=== PATIENT | female | born 1990 | race Hispanic/Latino ===

== ENCOUNTER 2019-07-22 13:56 | Emergency (ER) | payer OTHER ==
[2019-07-22] MEDS ORDERED: LIDOCAINE 1% W/EPI 1:100,000 MDV 20 ML VIAL ONE (16:55)
[2019-07-22] MEDS ORDERED: levETIRAcetam 500 MG TAB ONE (16:55)
--- NOTE | 2019-07-22 17:45 | ER ---
Nurse's Notes [facility] Name: Akua Love Age: 29 yrs Sex: Female : 1990 Arrival Date: 07/22/2019 Time: 13:58 Bed 20 Private MD: Diagnosis: Pilonidal cyst with abscess; related conditions, unspecified, third trimester Presentation: 07/22 14:32 Presenting complaint: Patient states: went to Dr. Ulloa and was told she had a iw pilonidal cyst, was referred to a surgeon but she didn't have money up front, abscess has been there for 2 days , pt is 26 weeks . Transition of care: patient was not received from another setting of care. Onset of symptoms was July 20, 2019. Risk Assessment: Do you want to hurt yourself or someone else? Patient reports no desire to harm self or others. Initial Sepsis Screen: Does the patient meet any 2 criteria? No. Patient's initial sepsis screen is negative. Does the patient have a suspected source of infection? No. Patient's initial sepsis screen is negative. Care prior to arrival: None. 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 - Coronavirus screen:: The patient has NOT traveled to [place], [place], or [place] in the past 14 days. Proceed with normal triage process as indicated. - Social history:: Smoking status: Smoking status: Patient denies any tobacco usage or history of. - Family history:: not pertinent. - Ebola Screening: : Patient negative for fever greater than or equal to 101.5 degrees Fahrenheit, and additional compatible Ebola Virus Disease symptoms Patient denies exposure to infectious person Patient denies travel to an Ebola-affected area in the 21 days before illness onset No symptoms or risks identified at this time. Screenin:00 Abuse screen: Denies threats or abuse. Denies injuries from another. Nutritional sg screening: No deficits noted. Tuberculosis screening: No symptoms or risk factors identified. Never had TB. Fall Risk None identified. Assessment: 16:01 General: Appears in no apparent distress. well groomed, well developed, well nourished, sg Behavior is calm, cooperative, appropriate for age. Pain: Complains of pain in coccyx Quality of pain is described as aching, throbbing. Neuro: Level of Consciousness is awake, alert, obeys commands, Oriented to person, place, time, situation, Moves all extremities. Gait is steady, Facial symmetry appears normal. Cardiovascular: Capillary refill is brisk in bilateral fingers Patient's skin is warm and dry. Chest pain is denied. Respiratory: Airway is patent Respiratory effort is even, unlabored, Respiratory pattern is regular, symmetrical. GI: No signs and/or symptoms were reported involving the gastrointestinal system. : No signs and/or symptoms were reported regarding the genitourinary system. EENT: No signs and/or symptoms were reported regarding the EENT system. Derm: Skin is pink, warm \T\ dry. Derm: Abscess located on coccyx is quarter sized, is hot to touch, is red, is raised. Musculoskeletal: Circulation, motion, and sensation intact. Range of motion: intact in all extremities. Vital Signs: 14:34 BP 117 / 78; Pulse 94; Resp 16; Temp 98.0(O); Pulse Ox 100% on R/A; Weight 88.45 kg; iw Height 5 ft. 3 in. (160.02 cm); Pain 9/10; 14:34 Body Mass Index 34.54 (88.45 kg, 160.02 cm) iw ED Course: 13:58 Patient arrived in ED. mr 14:34 Triage completed. iw 14:34 Arm band placed on. iw 15:01 Bed in low position. Call light in reach. tw2 15:02 Arturo Ashton, RN is Primary Nurse. sg 15:06 Ray Rogel MD is Attending Physician. adilene 17:44 Mehul Jaramillo MD is Referral Physician. adilene Administered Medications: 17:30 Drug: KeFLEX 500 mg Route: PO; sg 17:56 Drug: Lidocaine-Epinephrine -1%: (1:100,000) 10 ml {Note: medication administered by glory Rogel.} Volume: 20 ml; Route: Infiltration; Outcome: 17:44 Discharge ordered by . adilene 18:16 Patient left the ED. sg Signatures: Arturo Ashton RN RN Ray Montaño MD MD [facility] m[facility] Maureen Gillette RN RN iw Wise, Tara, RN RN tw2 Corrections: (The following items were deleted from the chart) 14:36 14:32 Presenting complaint: Patient states: went to Dr. Ulloa and was told she had a iw pilonidal cyst, was referred to a surgeon but she didn't have money up front, abscess has been there for 2 days iw
--- NOTE | 2019-07-22 17:45 | EDPHYS ---
Physician Documentation [facility] Name: Akua Love Age: 29 yrs Sex: Female : 1990 Arrival Date: 07/22/2019 Time: 13:58 Bed 20 Private MD: ED Physician Ray Rogel HPI: 07/22 16:31 This 29 yrs old Female presents to ER via Ambulatory with complaints of adilene Abscess. 16:31 the patient presents with a swollen area of the buttocks. Description: confluent, adilene erythematous, fluctuant, raised. Onset: The symptoms/episode began/occurred 3 day(s) ago. Associated signs and symptoms: The patient has no apparent associated signs or symptoms. Severity of symptoms: At their worst the symptoms were moderate, in the emergency department the symptoms are unchanged. The patient has not experienced similar symptoms in the past. 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 - Coronavirus screen:: The patient has NOT traveled to [place], [place], or [place] in the past 14 days. Proceed with normal triage process as indicated. - Social history:: Smoking status: Smoking status: Patient denies any tobacco usage or history of. - Family history:: not pertinent. - Ebola Screening: : Patient negative for fever greater than or equal to 101.5 degrees Fahrenheit, and additional compatible Ebola Virus Disease symptoms Patient denies exposure to infectious person Patient denies travel to an Ebola-affected area in the 21 days before illness onset No symptoms or risks identified at this time. ROS: 16:31 Constitutional: Negative for fever, chills, and weight loss, Eyes: Negative for injury, adilene pain, redness, and discharge, ENT: Negative for injury, pain, and discharge, Neck: Negative for injury, pain, and swelling, Cardiovascular: Negative for chest pain, palpitations, and edema, Respiratory: Negative for shortness of breath, cough, wheezing, and pleuritic chest pain, Abdomen/GI: Negative for abdominal pain, nausea, vomiting, diarrhea, and constipation, Back: Negative for injury and pain, : Negative for injury, bleeding, discharge, and swelling, MS/Extremity: Negative for injury and deformity, Neuro: Negative for headache, weakness, numbness, tingling, and seizure, Psych: Negative for depression, anxiety, suicide ideation, homicidal ideation, and hallucinations, Allergy/Immunology: Negative for hives, rash, and allergies, Endocrine: Negative for neck swelling, polydipsia, polyuria, polyphagia, and marked weight changes, Hematologic/Lymphatic: Negative for swollen nodes, abnormal bleeding, and unusual bruising. 16:31 Skin: Positive for erythema, of the buttocks. Exam: 16:31 Constitutional: This is a well developed, well nourished patient who is awake, alert, adilene and in no acute distress. Head/Face: Normocephalic, atraumatic. Eyes: Pupils equal round and reactive to light, extra-ocular motions intact. Lids and lashes normal. Conjunctiva and sclera are non-icteric and not injected. Cornea within normal limits. Periorbital areas with no swelling, redness, or edema. ENT: Nares patent. No nasal discharge, no septal abnormalities noted. Tympanic membranes are normal and external auditory canals are clear. Oropharynx with no redness, swelling, or masses, exudates, or evidence of obstruction, uvula midline. Mucous membranes moist. Neck: Trachea midline, no thyromegaly or masses palpated, and no cervical lymphadenopathy. Supple, full range of motion without nuchal rigidity, or vertebral point tenderness. No Meningismus. Chest/axilla: Normal chest wall appearance and motion. Nontender with no deformity. No lesions are appreciated. Cardiovascular: Regular rate and rhythm with a normal S1 and S2. No gallops, murmurs, or rubs. Normal PMI, no JVD. No pulse deficits. Respiratory: Lungs have equal breath sounds bilaterally, clear to auscultation and percussion. No rales, rhonchi or wheezes noted. No increased work of breathing, no retractions or nasal flaring. Abdomen/GI: Soft, non-tender, with normal bowel sounds. No distension or tympany. No guarding or rebound. No evidence of tenderness throughout. Back: No spinal tenderness. No costovertebral tenderness. Full range of motion. Female : Normal external genitalia. MS/ Extremity: Pulses equal, no cyanosis. Neurovascular intact. Full, normal range of motion. Neuro: Awake and alert, GCS 15, oriented to person, place, time, and situation. Cranial nerves II-XII grossly intact. Motor strength 5/5 in all extremities. Sensory grossly intact. Cerebellar exam normal. Normal gait. Psych: Awake, alert, with orientation to person, place and time. Behavior, mood, and affect are within normal limits. 16:31 Skin: abscess, that is small, cellulitis, that is minimal, induration, that is moderate is noted. Vital Signs: 14:34 BP 117 / 78; Pulse 94; Resp 16; Temp 98.0(O); Pulse Ox 100% on R/A; Weight 88.45 kg; iw Height 5 ft. 3 in. (160.02 cm); Pain 9/10; 14:34 Body Mass Index 34.54 (88.45 kg, 160.02 cm) Procedures: 17:44 I \T\ D: Incision and drainage was performed for an abscess of the right pilonidal cyst adilene Prepped with Betadine, Anesthetized with 10 ml's 1% Lidocaine w/ Epi. Incised with #11 blade. Drained large amount purulent fluid. serosanguinous fluid. bloody fluid. Packed with iodoform gauze, Dressing: non-Adherent dressing, the patient tolerated the procedure well. MDM: 15:06 Patient medically screened. [facility] 16:33 Data reviewed: vital signs, nurses notes, lab test result(s). [facility] 07/22 17:56 Order name: Wound Culture [facility] 07/22 16:31 Order name: FHT's; Complete Time: 17:56 [facility] 07/22 16:31 Order name: Blood Glucose Level; Complete Time: 17:56 [facility] 07/22 16:31 Order name: Dressing - Wound; Complete Time: 16:44 [facility] 07/22 16:31 Order name: Gloves, Sterile; Complete Time: 16:44 [facility] 07/22 16:31 Order name: Setup Suture Tray; Complete Time: 16:44 [facility] Administered Medications: 17:30 Drug: KeFLEX 500 mg Route: PO; 17:56 Drug: Lidocaine-Epinephrine -1%: (1:100,000) 10 ml {Note: medication administered by glory Rogel.} Volume: 20 ml; Route: Infiltration; Disposition: 07/22/19 17:44 Discharged to Home. Impression: Pilonidal cyst with abscess, related conditions, unspecified, third trimester. - Condition is Stable. - Discharge Instructions: Skin Abscess, Incision and Drainage, Pilonidal Cyst, Skin Abscess, [id number], Incision and Drainage of a Pilonidal Cyst, Care After, Incision and Drainage, Care After, Incision and Drainage of a Pilonidal Cyst. - Prescriptions for Keflex 500 mg Oral Capsule - take 1 capsule by ORAL route every 6 hours for 7 days; 28 capsule. Tylenol- Codeine #3 300-30 mg Oral Tablet - take 2 tablets by ORAL route every 6 hours As needed; 24 tablet. Vitamin 27- 0.8 mg Oral Tablet - take 1 tablet by ORAL route once daily; 30 tablet. - Work release form, Medication Reconciliation Form, Thank You Letter, Antibiotic Education, Prescription Opioid Use form. - Follow up: Private Physician; When: 2 - 3 days; Reason: Recheck today's complaints, Continuance of care, Re-evaluation by your physician. Follow up: Mehul Jaramillo; When: 2 - 3 days; Reason: Recheck today's complaints, Re-evaluation by your physician. - Problem is new. - Symptoms have improved. Signatures: Dispatcher [employer] EDArturo Mi RN RN sg Anderson, Corey, MD MD cha Williams, Irene, RN RN iw Corrections: (The following items were deleted from the chart) 18:16 17:44 07/22/2019 17:44 Discharged to Home. Impression: Pilonidal cyst with abscess; sg related conditions, unspecified, third trimester. Condition is Stable. Discharge Instructions: Skin Abscess, Incision and Drainage, Pilonidal Cyst, Skin Abscess, [id number], Incision and Drainage of a Pilonidal Cyst, Care After, Incision and Drainage, Care After, Incision and Drainage of a Pilonidal Cyst. Prescriptions for Keflex 500 mg Oral Capsule - take 1 capsule by ORAL route every 6 hours for 7 days; 28 capsule, Tylenol-Codeine #3 300-30 mg Oral Tablet - take 2 tablets by ORAL route every 6 hours As needed; 24 tablet, Vitamin 27-0.8 mg Oral Tablet - take 1 tablet by ORAL route once daily; 30 tablet. and Forms are Medication Reconciliation Form, Thank You Letter, Antibiotic Education, Prescription Opioid Use. Follow up: Private Physician; When: 2 - 3 days; Reason: Recheck today's complaints, Continuance of care, Re-evaluation by your physician. Follow up: Mehul Jaramillo; When: 2 - 3 days; Reason: Recheck today's complaints, Re-evaluation by your physician. Problem is new. Symptoms have improved. adilene
[2019-07-22 18:28] VITALS: BP 117/78; TEMP 98; O2SAT 100
== END 2019-07-22 18:16 | disposition home or self-care (01) ==
LOC: ER 13:56
PROC: 0H98XZZ Drainage of Buttock Skin, External Approach (ICD-10-PCS; principal; 2019-07-22)
DX: O26.893 Other specified pregnancy related conditions, third trimester (principal); Z3A.26 26 weeks gestation of pregnancy
CPT/HCPCS: 82947; 87070; 87205; 99282

== ENCOUNTER 2019-10-22 04:05 | Inpatient (IN) | payer OTHER ==
[2019-10-22] MEDS ORDERED: Ringers Lactate 1,000 ML IV PRN (04:20)
[2019-10-22] MEDS ORDERED: MEPERIDINE HCL 25 MG/0.5 ML IV PRN (04:20)
[2019-10-22] MEDS ORDERED: BUTORPHANOL 1 MG/ML INJ IV PRN (04:20)
[2019-10-22] MEDS ORDERED: PROMETHAZINE INJ 25 MG/ML AMP IM PRN (04:20)
[2019-10-22] MEDS ORDERED: METHYLERGONOVINE 0.2MG/ML AMP IM PRN (04:20)
[2019-10-22] MEDS ORDERED: CARBOPROST TROME 250 MCG/ML IM PRN (04:20)
[2019-10-22] MEDS ORDERED: Ringers Lactate 1,000 ML IV SCH (05:00)
[2019-10-22] MEDS ORDERED: OXYTOCIN/LR 20 UNIT/1,000 ML BAG IV SCH ×2 (05:00→10:00)
[2019-10-22 05:06] VITALS: BMI 51.3
[2019-10-22 05:06] LABS: Absolute Lymphocytes (CBC) 2.2 K/uL (0.7-4.9); Basophils % 0.4 % (0-1.3); Hematocrit 33.1 % (36.0-45.0); Lymphocytes % 23.3 % (15.3-44.8); MPV 10.4 fL (7.6-11.3); RBC Red Blood Cell Count 3.97 M/uL (3.86-4.86); Urine Appearance TURBID; Urine Bilirubin NEGATIVE (NEG); Urine Blood NEGATIVE (NEG); Urine Color YELLOW; Urine Glucose NEGATIVE (NEG); Urine Protein TRACE (NEG); Urine Specific Gravity 1.015 (1.005-1.030)
[2019-10-22 06:05] LABS: Urine Bacteria >50 /HPF (<20); Urine Culture Reflex Order REFLEXED; Urine RBC NONE SEEN /HPF (NONE SEEN)
--- NOTE | 2019-10-22 08:03 | PREOPHP ---
Date of Admission: 10/22/2019 29-year-old 4, para 3, 39 weeks. Rh positive. Immune to Rubella. Negative beta strep scree n. 3.5 cm, vertex still -2 station with contraction comes down better against the cervix, but not qu ite ready for rupture of membranes. Baby looks good on the monitor. Full labor talk given. Patient will be going natural, which she has done with all of her other deliveries. We will recheck in an h our or so to see if it is ready for membrane rupture. She knows if membranes rupture spontaneously t o tell the nurse, so they can check her quickly to make sure we do not have any kind of cord problem. TOMAS/TRAY Voice ID: [id number]
--- NOTE | 2019-10-22 08:41 | PN ---
Patient is now 4.5, almost 5 cm, 70% effaced, vertex, well applied -1 station. Rupture of membranes, clear fluid. Anticipate more rapid progress from this point forward. TOMAS/TRAY Voice ID: [id number] Report ID: [id number]
[2019-10-22] MEDS ORDERED: LIDOCAINE 1% MPF 30 ML VIAL ONE (08:57)
[2019-10-22] MEDS ORDERED: DOCUSATE NA/SENNA CONC 1 TAB PO PRN (09:44)
[2019-10-22] MEDS ORDERED: ACETAMINOPHEN 500 MG TAB PO PRN (09:44)
[2019-10-22] MEDS ORDERED: DIPHENHYDRAMINE 25 MG TAB/CAP PO PRN (09:44)
[2019-10-22] MEDS ORDERED: IBUPROFEN 600 MG TAB PO PRN (09:44)
[2019-10-22] MEDS ORDERED: Oxycodone HCl/Acetaminophen 1 TAB TAB PO PRN ×2 (09:44)
[2019-10-22] MEDS ORDERED: BISACODYL 10 MG RECTAL SUPP PR PRN (09:44)
[2019-10-23 07:13] VITALS: TEMP 98.4
[2019-10-23] MEDS ORDERED: Tdap (Diph,Pertuss(Acell),Tet Vac) 0.5 ML SYR IMVAC ONE (07:38)
--- NOTE | 2019-10-23 08:19 | DS ---
Hospital Course: Akua Love a 29-year-old, 4, para 3, 39 weeks gestation, delivered spon taneously a 7 pounds plus male . Apgars 9 and 9. Small first-degree laceration repaired with 2-0 chromic. Had Stadol during the labor. Otherwise used Lamaze breathing techniques. Oren felton of the placenta, inspected and noted to be intact and normal. A 300 mL or less blood loss. Rh positive, immune to Rubella. Negative beta strep screen. She will get her Tdap shot before she is dismissed. Requests no analgesics on dismissal. Patient did have a mildly elevated blood pressure, and had fairly significant pretibial edema, reflexes have been normal, protein was trace on admission but that was a clean-catch, we will get another specimen this morning. If it shows any significant urine protein, we will give her phenobarbital to be taken next 3 days, but I really do not think this is preeclampsia; however, if protein in the urine, we will give her the phenobarbital. Full discuss ion with the patient and . Final Diagnoses: Term intrauterine . Spontaneous vaginal delivery. ITZELC/MODL Voice ID: [id number] Report ID: [id number]
[2019-10-23 10:21] VITALS: BP 111/63
[2019-10-24 04:19] LABS: RPR (Rapid Plasma Reagin) NON-REACT (NON-REACT)
--- NOTE | 2019-10-24 09:28 | OP ---
Surgeon: León Ulloa MD Description Of Procedure: Akua Love is a 29-year-old, 4, para 3, 39 weeks' gestation, R h positive, immune to rubella, negative beta strep screen. 3.5 to 4 cm on admission. Rupture of mem branes at approximately 4.5 cm, clear fluid. Patient went rapidly to complete. Had Stadol 1 mg IV, otherwise used Lamaze breathing techniques to best advantage. Second stage of 15 to 20 minutes. Spo ntaneous vaginal delivery of an estimated 7-pound male infant, occiput posterior. Small first-degree laceration sutured with 2-0 chromic under local infiltration. Schultze delivery of the placenta, wh ich was inspected and noted to be intact and normal. Less than 300 mL blood loss. Patient tolerated all procedures well. Final Diagnoses: Term intrauterine , vaginal delivery, straight occiput posterior. TOMAS/TRAY Voice ID: [id number] Report ID: [id number]
== END 2019-10-23 11:10 | disposition home or self-care (01) | DRG 807 ==
LOC: 2ND-WC 04:05
PROVIDERS: ADMIT Specialist; ATTEND Specialist
PROC: 10E0XZZ Delivery of Products of Conception, External Approach (ICD-10-PCS; principal; 2019-10-22)
PROC: 3E0234Z Introduction of Serum, Toxoid and Vaccine into Muscle, Percutaneous Approach (ICD-10-PCS; 2019-10-23)
DX: O80 Encounter for full-term uncomplicated delivery (principal); O70.0 First degree perineal laceration during delivery; Z3A.39 39 weeks gestation of pregnancy; Z37.0 Single live birth; Z23 Encounter for immunization
CPT/HCPCS: 36415; 81001; 85025; 86592; 86901; 87086; 87088; 87340; 90471; 90715; J0595; J2550; J2590; J7120

== ENCOUNTER 2022-08-02 08:45 | Emergency (ER) | payer SELFPAY ==
--- NOTE | 2022-08-02 09:30 | EDPHYS ---
Physician Documentation [facility] Name: Akua Love Age: 32 yrs Sex: Female : 1990 Arrival Date: 08/02/2022 Time: 08:48 Bed 12 Private MD: ED Physician Juan Pablo Luong HPI: 08/02 08:57 This 32 yrs old Female presents to ER via Ambulatory with complaints of jmm Abscess. 08:57 Is a 32-year-old female with no chronic medical conditions presents emerged department [facility] with complaints of a bleeding wound she initially began as an abscess this past February but is failed to heal. Denies fever. Patient is mainly concerned due to her recent episode heavy bleeding from the wound into her toilet. Denies fever.. Historical: - Allergies: 08:59 No Known Allergies; ld1 - Home Meds: 08:59 None [Active]; ld1 - PMHx: 08:59 None; ld1 - PSHx: 08:59 Cholecystectomy; ld1 - Immunization history:: Adult Immunizations up to date, Client reports receiving the 2nd dose of the Covid vaccine. - Social history:: Smoking status: Patient denies any tobacco usage or history of. Patient/guardian denies using alcohol. ROS: 08:57 Constitutional: Negative for fever, chills, and weight loss, Cardiovascular: Negative jmm for chest pain, palpitations, and edema, Respiratory: Negative for shortness of breath, cough, wheezing, and pleuritic chest pain. 08:57 Skin: Positive for Wound. 08:57 All other systems are negative. Exam: 08:57 Constitutional: This is a well developed, well nourished patient who is awake, alert, jmm and in no acute distress. Head/Face: atraumatic. Eyes: EOMI, no conjunctival erythema appreciated ENT: Moist Mucus Membranes Neck: Trachea midline, Supple Chest/axilla: Normal chest wall appearance and motion. Cardiovascular: Regular rate and rhythm. No edema appreciated Respiratory: Normal respirations, no respiratory distress appreciated Abdomen/GI: Non distended Back: Normal ROM 08:57 Skin: Wound noted to the left gluteus, no surrounding induration, no purulent drainage appreciated. 08:57 Neuro: Orientation: is normal, Mentation: is normal, Memory: is normal. 08:57 Psych: Behavior/mood is pleasant, cooperative. Vital Signs: 08:56 BP 151 / 88; Pulse 66; Resp 18; Pulse Ox 99% on R/A; Weight 83.91 kg; Height 5 ft. 2 ld1 in. (157.48 cm); Pain 3/10; 09:27 Temp 98.6(TE); ss 08:56 Body Mass Index 33.84 (83.91 kg, 157.48 cm) ld1 MDM: 08:57 Patient medically screened. [facility] 09:28 Data reviewed: vital signs, nurses notes. 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 Counseling: I had a detailed discussion with the patient and/or guardian regarding: the historical points, exam findings, and any diagnostic results supporting the discharge/admit diagnosis, the need for outpatient follow up, to return to the emergency department if symptoms worsen or persist or if there are any questions or concerns that arise at home. ED course: Physical exam findings not consistent with an active infection. Patient is advised to follow-up with wound healing and/or general surgery for further evaluation. Patient otherwise given strict return precautions. Patient understood agrees plan of care. 08/02 08:57 Order name: Gown patient; Complete Time: 09:10 [facility] 08/02 09:18 Order name: Wound Care; Complete Time: 09:27 [facility] Administered Medications: No medications were administered Disposition: 18:10 Co-signature as Attending Physician, Juan Pablo DAY was immediately available on-site ms3 in the Emergency Department for consultation in the care of the patient. Disposition Summary: 08/02/22 09:29 Discharge Ordered Location: Home [facility] Condition: Stable [facility] Diagnosis - Open wound of buttocks [facility] Followup: [facility] - With: Fernandez Jovel MD - When: 2 - 3 days - Reason: Recheck today's complaints, Continuance of care, Re-evaluation by your physician Discharge Instructions: - Discharge Summary Sheet [facility] - Wound Care, Adult [facility] Forms: - Medication Reconciliation Form [facility] - Thank You Letter [facility] - Antibiotic Education [facility] - Prescription Opioid Use [facility] Signatures: Edmundo Roberts PA PA jmm Sims, Marcus, DO DO ms3 Susana Toussaint RN RN ld1
--- NOTE | 2022-08-02 09:30 | ER ---
Nurse's Notes [facility] Name: Akua Love Age: 32 yrs Sex: Female : 1990 Arrival Date: 08/02/2022 Time: 08:48 Bed 12 Private MD: Diagnosis: Open wound of buttocks Presentation: 08/02 08:56 Chief complaint: Patient states: Abscess since February. Pt reports abscess busted and ld1 has not healed shut - constantly draining, reporting blood in toilet. "Seems to be getting worse.". Coronavirus screen: At this time, the client does not indicate any symptoms associated with coronavirus-19. Ebola Screen: No symptoms or risks identified at this time. Initial Sepsis Screen: Does the patient meet any 2 criteria? No. Patient's initial sepsis screen is negative. Does the patient have a suspected source of infection? No. Patient's initial sepsis screen is negative. Risk Assessment: Do you want to hurt yourself or someone else? Patient reports no desire to harm self or others. Onset of symptoms was August 02, 2022. 08:56 Method Of Arrival: Ambulatory ld1 08:56 Acuity: MARIA TERESA 4 ld1 Triage Assessment: 08:59 General: Appears in no apparent distress. comfortable, Behavior is calm, cooperative, ld1 appropriate for age. Pain: Denies pain. EENT: No signs and/or symptoms were reported regarding the EENT system. Neuro: Level of Consciousness is awake, alert, obeys commands, Oriented to person, place, time, situation. Cardiovascular: Capillary refill < 3 seconds Patient's skin is warm and dry. Respiratory: Airway is patent Respiratory effort is even, unlabored. GI: Abdomen is round non-distended. : No signs and/or symptoms were reported regarding the genitourinary system. Derm: No signs and/or symptoms reported regarding the dermatologic system. Derm: Abscess located on gluteal cleft. Musculoskeletal: No signs and/or symptoms reported regarding the musculoskeletal system. Historical: - Allergies: 08:59 No Known Allergies; ld1 - Home Meds: 08:59 None [Active]; ld1 - PMHx: 08:59 None; ld1 - PSHx: 08:59 Cholecystectomy; ld1 - Immunization history:: Adult Immunizations up to date, Client reports receiving the 2nd dose of the Covid vaccine. - Social history:: Smoking status: Patient denies any tobacco usage or history of. Patient/guardian denies using alcohol. Screenin:01 [facility] ED Fall Risk Assessment (Adult) History of falling in the last 3 months, ld1 including since admission No falls in past 3 months (0 pts). Abuse screen: Denies threats or abuse. Denies injuries from another. Nutritional screening: No deficits noted. Tuberculosis screening: No symptoms or risk factors identified. Assessment: 09:01 Reassessment: See triage assessment. ld1 09:53 Reassessment: Pt verbalizes understanding to call wound healing to make follow up ss appointment with general surgeon/ wound healing upon discharge. Vital Signs: 08:56 BP 151 / 88; Pulse 66; Resp 18; Pulse Ox 99% on R/A; Weight 83.91 kg; Height 5 ft. 2 ld1 in. (157.48 cm); Pain 3/10; 09:27 Temp 98.6(TE); ss 08:56 Body Mass Index 33.84 (83.91 kg, 157.48 cm) ld1 ED Course: 08:48 Patient arrived in ED. mr 08:48 Edmundo Roberts PA is PHCP. [facility] 08:48 Juan Pablo Luong DO is Attending Physician. jm 08:59 Triage completed. ld1 08:59 Arm band placed on right wrist. ld1 09:01 Patient has correct armband on for positive identification. Placed in gown. Bed in low ld1 position. Call light in reach. Side rails up X2. Pulse ox on. NIBP on. Door closed. Noise minimized. Warm blanket given. 09:05 Maria Luisa Nguyễn, RN is Primary Nurse. ss 09:27 No provider procedures requiring assistance completed. Patient did not have IV access ss during this emergency room visit. Dressings: Medipore tape and gauze to placed to the area. 09:29 Fernandez Jovel MD is Referral Physician. zelalem Administered Medications: No medications were administered Medication: 09: VIS not applicable for this client. ld1 Outcome: :29 Discharge ordered by . zelalem 09:53 Discharged to home ambulatory, with family. ss 09:53 Condition: good :53 Discharge instructions given to patient, family, Instructed on discharge instructions, follow up and referral plans. Demonstrated understanding of instructions, follow-up care. 09:56 Patient left the ED. Signatures: Edmundo Roberts PA PA jmm Rivera, Mary mr Maria Luisa Nguyễn, RN RN ss Susana Toussaint RN RN ld1
[2022-08-02 10:03] VITALS: BP 151/88; TEMP 98.6; O2SAT 99
== END 2022-08-02 09:56 | disposition home or self-care (01) ==
LOC: ER 08:45
DX: S31.809A Unspecified open wound of unspecified buttock, initial encounter (principal)

== ENCOUNTER 2023-12-18 09:24 | Emergency (ER) | payer SELFPAY ==
--- OUTSIDE RECORDS SUMMARY | 2023-12-18 09:28 | XMS REPORT | Continuity of Care Document ---
Author Name Unknown Address [address] [place] [address]. [address] [place], [place] [id number] [place] [address] [employer] Address [address] [place] [address]. [address] [place] [address] Care Team Providers Care Hydrographic Surveyor Name Role Phone Unavailable Unavailable Unavailable Results Test Description Test Time Test Comments Results Result Co mments Source TSH, THIRD [id number] 05:09:46* Test Item Value Reference Range Interpretation Comme nts TSH, THIRD GENERATION (test code = 2821) 1.020 UIU/ML 0.400-4.100 FREE T4 (THYROXINE)2022-08-24 05:09:46* Test Item Value Reference Range Interpretation Comme nts FREE T4 (THYROXINE) (test co de = 2823) 1.29 NG/DL 0.80-1.90 VITAMIN B 12 AND FOLIC [id number] 05:09:46* Test Item Value Reference Range Interpretation Comme nts VITAMIN B-12 (test code = 2840) 612 PG/ML 200-950 FOLIC ACID (test code = 2695) 15.0 UG/L SEE BELOW INTERPRETI VE RANGES DEFICIENCY . . . . . . . . . . . . . . . UG/L <4.0 POSSIBLE DEFICIENCY. . . . . . . . . . . UG/L 4.0-5.9 SUFFICIENT . . . . . . . . . . . . . . . UG/L >=6.[address] [facility] has important pathology staff changes effective 08/24/2022. New pathology staff will provide uninterrupted, excellent patient care and clinical consultation. See URL: [email or web address]. UNLESS OTHERWISE INDICATED, ALL TESTING PERFORMED AT [facility] [address] [place] [id number] ASSISTED LIVING DIRECTOR: BONY MCDONNELL M.D. CLIA NUMBER [id number] [facility] [place]. [id number] CBC W/AUTO DIFF WITH [id number] 03:26:28* Test Item Value Reference Range Interpretation Comme nts WBC (test code = 1001) 9.9 K/UL 3.5-11.0 RBC (test code = 1002) 4.21 M/UL 3.80-5.40 HEMOGLOBIN (test code = 1003) 11.6 G/DL 11.5-15.5 HEMATOCRIT (test code = 1004) 35.5 % 34.0-45.0 MCV (test code = 1005) 84.3 fL 80.0-99.0 MCH (test code = 1006) 27.6 PG 25.0-33.0 MCHC (test code = 1007) 32.7 G/DL 31.0-36.0 RDW (test code = 1038) 12.7 % 11.5-15.0 NEUTROPHILS (test code = 1008) 69.4 % LYMPHOCYTES (test code = 1010) 24.0 % MONOCYTES (test code = 1011) 4.6 % EOSINOPHILS (test code = 1012) 1.3 % BASOPHILS (test code = 1013) 0.4 % IMMATURE GRANULOCYTES (test code = 1036) 0.3 % NUCLEATED RBCS (test code = 1065) 0.0 /100 WBC'S See_Comment [Automated messa ge] The system which generated this result transmitted reference range: 0.0. The reference range was not used to interpret this result as normal/abnormal. PLATELET COUNT (test code = 1015) 243 K/UL 130-400 ABSOLUTE NEUTROPHILS (test code = 1066) 6.84 K/UL 1.50-7.50 ABSOLUTE LYMPHOCYTES (test code = 1067) 2.37 K/UL 1.00-4.00 ABSOLUTE MONOCYTES (test code = 1068) 0.45 K/UL 0.20-1.00 ABSOLUTE EOSINOPHILS (test code = 1040) 0.13 K/UL 0.00-0.50 ABSOLUTE BASOPHILS (test code = 1069) 0.04 K/UL 0.00-0.20 ABS IMMATURE GRANULOCYTES (test code = 1020) 0.03 K/UL 0.00-0.10 ABS NUCLEATED RBCS (test code = 51387) 0.00 K/UL 0.00-0.11 IRON, [id number] 03:21:18* Test Item Value Reference Range Interpretation Comme nts IRON, SERUM (test code = 2222) 49 UG/DL 37-145
--- NOTE | 2023-12-18 09:46 | ER ---
Nurse's Notes [facility] Name: Akua Love Age: 33 yrs Sex: Female : 1990 Arrival Date: 12/18/2023 Time: 09:24 Bed Waiting Private MD: Diagnosis: Rash and other nonspecific skin eruption Presentation: 12/17 09:42 Chief complaint: Patient states: Itching, burning, pain to posterior right shoulder, jl7 radiates to right upper arm/shoulder x 3 days. Coronavirus screen: At this time, the client does not indicate any symptoms associated with coronavirus-19. Ebola Screen: No symptoms or risks identified at this time. Onset: The symptoms/episode began/occurred 3 day(s) ago. Anaphylaxis evaluation, no signs or symptoms of anaphylaxis were noted. Initial Sepsis Screen: Does the patient meet any 2 criteria? No. Patient's initial sepsis screen is negative. Does the patient have a suspected source of infection? No. Patient's initial sepsis screen is negative. Risk Assessment: Do you want to hurt yourself or someone else? Patient reports no desire to harm self or others. Onset of symptoms was December 16, 2003. 09:42 Method Of Arrival: Ambulatory jl7 09:42 Acuity: MARIA TERESA 4 jl7 Triage Assessment: 09:45 General: Appears in no apparent distress. uncomfortable, Behavior is calm, cooperative, jl7 appropriate for age. Pain: Complains of pain in posterior aspect of right shoulder Pain radiates to anterior aspect of right shoulder Pain currently is 5 out of 10 on a pain scale. Neuro: Level of Consciousness is awake, alert, obeys commands, Oriented to person, place, time, situation. Cardiovascular: Patient's skin is warm and dry. Respiratory: Airway is patent Respiratory effort is even, unlabored, Respiratory pattern is regular, symmetrical. Derm: Skin is pink, warm \T\ dry. 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 - Infectious Disease History:: Denies. - Social history:: Smoking status: Patient reports the use of cigarette tobacco products, denies chronic smoking, but will smoke occasionally. Screenin:48 [facility] ED Fall Risk Assessment (Adult) History of falling in the last 3 months, jl7 including since admission No falls in past 3 months (0 pts) Confusion or Disorientation No (0 pts) Intoxicated or Sedated No (0 pts) Impaired Gait No (0 pts) Mobility Assist Device Used No (0 pt) Altered Elimination No (0 pt) Score/Fall Risk Level 0 - 2 = Low Risk Oriented to surroundings. Abuse screen: Denies threats or abuse. Denies injuries from another. Nutritional screening: No deficits noted. Tuberculosis screening: No symptoms or risk factors identified. Assessment: 09:47 Reassessment: DAIANA Fernandez in triage assessing pt. jl7 Vital Signs: 09:42 BP 154 / 84; Pulse 59; Resp 15; Pulse Ox 100% ; Weight 89.36 kg; Height 5 ft. 3 in. ; jl7 Pain 5/10; 09:42 Body Mass Index 34.90 (89.36 kg, 160.02 cm) jl7 09:42 Pain Scale: Adult jl7 ED Course: 09:27 Patient arrived in ED. mr 09:27 [facility] Mercado [facility] sb[facility] 09:27 Kosta Clark MD is Attending Physician. sb4 09:45 Triage completed. jl7 09:45 Arm band placed on right wrist. jl7 09:48 Patient has correct armband on for positive identification. Provided Education on: d/c. jl7 09:48 No provider procedures requiring assistance completed. Patient did not have IV access jl7 during this emergency room visit. Administered Medications: No medications were administered Medication: 09:49 VIS not applicable for this client. jl7 Outcome: 09:45 Discharge ordered by . sb4 09:48 Discharged to home ambulatory, jl7 09:48 Condition: stable 09:48 Discharge instructions given to patient, Instructed on discharge instructions, follow up and referral plans. medication usage, Demonstrated understanding of instructions, follow-up care, medications, Prescriptions given X 1, 09:49 Patient left the ED. jl7 Signatures: Alexandria Carlos, Reg Reg mr InfanteDimas RN RN jl7 Haylee Mercado PA-C PA-C sb4
--- NOTE | 2023-12-18 09:46 | EDPHYS ---
Physician Documentation [facility] Name: Akua Love Age: 33 yrs Sex: Female : 1990 Arrival Date: 12/18/2023 Time: 09:24 Bed Waiting Private MD: ED Physician Kosta Clark HPI: 12/17 09:47 This 33 yrs old Female presents to ER via Ambulatory with complaints of sb4 Itching, Arm Pain. 09:47 Patient started experiencing itching and pain on her right posterior shoulder blade on sb4 Monday. She states it itches and causes her pain down her right arm. She was outside cleaning her porch but is not sure if she was stung or bit by anything. She denies any changes in medications, new detergents, new clothes. She has been taking Benadryl without significant relief. 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 - Infectious Disease History:: Denies. - Social history:: Smoking status: Patient reports the use of cigarette tobacco products, denies chronic smoking, but will smoke occasionally. ROS: 09:47 Constitutional: Negative for fever, chills, and weight loss, sb4 09:47 Skin: Positive for rash, 09:47 All other systems are negative, Exam: 09:47 Constitutional: This is a well developed, well nourished patient who is awake, alert, sb4 and in no acute distress. Head/Face: Normocephalic, atraumatic. Eyes: Extra-ocular motions intact. Periorbital areas with no swelling, redness, or edema. ENT: Mucous membranes moist. 09:47 Skin: contact dermatitis, on the posterior aspect of right shoulder, Vital Signs: 09:42 BP 154 / 84; Pulse 59; Resp 15; Pulse Ox 100% ; Weight 89.36 kg; Height 5 ft. 3 in. ; jl7 Pain 5/10; 09:42 Body Mass Index 34.90 (89.36 kg, 160.02 cm) jl7 09:42 Pain Scale: Adult jl7 MDM: 09:33 Patient medically screened. sb4 09:47 Data reviewed: vital signs, nurses notes, and as a result, I will discharge patient. sb4 Counseling: I had a detailed discussion with the patient and/or guardian regarding the historical points, exam findings, and any diagnostic results supporting the discharge/admit diagnosis, to return to the emergency department if symptoms worsen or persist or if there are any questions or concerns that arise at home. Administered Medications: No medications were administered Disposition: 20:42 Co-signature as Attending Physician, Kosta Clark MD I reviewed the patient's care rn provided by the Advanced Practice Provider and agree with the diagnosis and treatment plan. Disposition Summary: 12/18/23 09:45 Discharge Ordered Notes: Location: Home sb4 Problem: new sb4 Symptoms: are unchanged sb4 Condition: Stable sb4 Diagnosis - Rash and other nonspecific skin eruption sb4 Followup: sb4 - With: Emergency Department - When: As needed - Reason: Trouble breathing, Worsening of condition Discharge Instructions: - Discharge Summary Sheet sb4 - Rash, Adult, [id number] sb4 Forms: - Patient Portal Instructions sb4 - Leadership Thank You Letter sb4 Prescriptions: - Medrol (Clark) 4 mg Oral Tablets, Dose Pack - take 1 tablet ORAL route as directed - follow package instructions; 1 packet; sb4 Refills: 0, Product Selection Permitted Signatures: Kosta Clark MD MD rn Leal, Jahala, RN RN jl7 Brown, Sophia, PA-C PA-C sb4
[2023-12-18 17:50] VITALS: BP 154/84; O2SAT 100
== END 2023-12-18 09:49 | disposition home or self-care (01) ==
LOC: ER 09:24
DX: L25.9 Unspecified contact dermatitis, unspecified cause (principal)